=== PATIENT | male | born 1990 | race Caucasian/White ===

== ENCOUNTER 2019-06-16 22:47 | Emergency (ER) | payer BC ==
[2019-06-16] MEDS ORDERED: LIDOCAINE 1% W/ EPINEPHRINE 20 ML VIAL INJ ONE (23:07)
[2019-06-16] MEDS ORDERED: CHLORHEXIDINE GLUCONATE 4 % 15 ML UD TOP ONE (23:10)
[2019-06-16 23:19] VITALS: TEMP 98.9
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
[2019-06-16 23:30] VITALS: BP 147/72; O2SAT 99
== END 2019-06-16 23:31 | disposition home or self-care (01) ==
LOC: ER 22:47
DX: S01.111A Laceration without foreign body of right eyelid and periocular area, initial encounter (principal); W45.8XXA Other foreign body or object entering through skin, initial encounter; Y93.89 Activity, other specified; Y92.9 Unspecified place or not applicable